=== PATIENT | female | born 1950 | race Caucasian/White ===

== ENCOUNTER → 2017-03-20 | Outpatient (CLI) | payer OTHER, MEDICAID | LOC: FIMAGING 15:57 | PROVIDERS: ATTEND Internal Medicine | DX: Z12.31 Encounter for screening mammogram for malignant neoplasm of breast (principal) | CPT/HCPCS: G0202; G0463-PO ==

== ENCOUNTER 2017-05-17 04:46 | Observation (INO) | payer OTHER, MEDICAID ==
[2017-05-17] MEDS ORDERED: NS 1,000 ML IV ONE (04:55)
--- NOTE | 2017-05-17 04:58 | EDPHY ---
H & P Stated Complaint: fall, dizzy HPI/ROS: HPI CHIEF COMPLAINT: fall, facial injury, right hand injury, possible syncope HISTORY OF PRESENT ILLNESS: Patient is a 67-year-old female she presents emergency room by EMS for fall this evening. Unclear exactly the nature of the events. The patient cannot report exactly what happened. She is unsure. She thinks she bent over and fell and then landed on the left side of her head. She states she was wearing her glasses. She decided come to the hospital initially by private vehicle left her home and drove here but ended up at the [employer] bus station thinking that was the hospital parking garage. 911 was called from there and the patient was brought to the emergency room. Upon arrival to the emergency room she can't tell me what year it is, she can't tell me that she lives in [facility], she can't tell me the president however does seem slightly confused. She does have ecchymosis to left periorbital region, additionally ecchymosis to the right hand. She denies any chest pain or shortness of breath. Denies neck pain. She is unsure exactly what happened. Denies being on any blood thinners. She does have a history of chronic pain and fibromyalgia and takes large amount of medications. Patient denies any recent illness. Past Medical History: Chronic pain, fibromyalgia, TMJ, osteopenia Past Surgical History: No recent surgery Social History: Lives locally in [place]. She denies alcohol or tobacco but does occasionally eat edible marijuana brownies. Family History: Noncontributory ROS REVIEW OF SYSTEMS: A comprehensive 10 point review of systems is otherwise negative aside from elements mentioned in the history of present illness. Exam Constitutional appears nontoxic triage nursing summary reviewed, vital signs reviewed, awake/alert. Eyes normal conjunctivae and sclera, EOMI, PERRLA. HENT head/neck: There is ecchymosis around the left periorbital region with swelling. No eye injury, no midline cervical spine pain,, moist mucus membranes , no epistaxis, neck supple/ no meningismus, no raccoon eyes. Respiratory clear to auscultation bilaterally, normal breath sounds, no respiratory distress, no wheezing. Cardiovascular rate normal, regular rhythm, no murmur, no edema, distal pulses normal. Gastrointestinal soft, non-tender, no rebound, no guarding, normal bowel sounds, no distension, no pulsatile mass. Genitourinary no CVA tenderness. Musculoskeletal right hand is swollen and ecchymotic, but neurovascular intact with good distal pulse. Good cap refill good strategy lead strength, no midline vertebral tenderness, full range of motion, no calf swelling, no tenderness of extremities, no meningismus, good pulses, neurovascularly intact. Skin pink, warm, & dry, no rash, skin atraumatic. Neurologic awake, alert and oriented x 3, AAOx3, moves all 4 extremities equally, motor intact, sensory intact, CN II-XII intact, normal cerebellar, normal vision, normal speech. Psychiatric normal mood/affect. Heme/Lymph/Immune no lymphadenopathy. Differential Diagnosis: Includes but is not limited to in a particular order syncope, intracranial bleed, subdural, epidural, facial fractures, right hand fracture, fall, medication overdose Medical Decision Making: Plan for this patient IV establishment blood draw, check basic blood work, EKG, troponin, CT scan of the head and neck, right hand x-ray chest x-ray and re-evaluate. Re-evaluation: EKG interpretation by me on record in [employer] system. Impression time of EKG 4:57 a.m., sinus rhythm rate of 75 otherwise unremarkable EKG no signs of cardiac arrhythmia or acute ischemia. CT scan of the head and neck without contrast negative for acute traumatic injury. There is facial swelling present. But no underlying fracture or bleed. ED x-ray of the chest negative for acute cardiopulmonary disease. ED x-ray of the right hand negative for acute fracture. Image interpreted myself. [id number]: I did reexamine the patient. She really can't tell me what happened. She is unsure exactly how she fell. It may be due to overmedication of her home medications. Her x-rays, CT and blood work unremarkable. She still seems somewhat confused to me and I do not feel safe discharging her home she lives independent. I do feel that she needs to be admitted the hospital for observation for confusion and weakness and fall. Most probable cause polypharmacy. Urine drug screen is ordered. Will speak with the hospitalist service for admission. 0606: Spoke with Dr. Duque, hospitalist service agrees to admit. Patient benefit from PT OT. Observation. See if her polypharmacy clears. Also waiting drug screen. I do not feel safe discharging her home she lives independently. Source: Patient, EMS - Personal History Current Tetanus Diphtheria and Acellular Pertussis (TDAP): Yes Tetanus Vaccine Date: 2008 - Medical/Surgical History Hx Asthma: No Hx Chronic Respiratory Disease: No Hx Diabetes: No Hx Cardiac Disease: No Hx Renal Disease: No Hx Cirrhosis: No Hx Alcoholism: No Hx HIV/AIDS: No Hx Splenectomy or Spleen Trauma: No Other PMH: osteoporosis, TMJ, fibromyalgia - Social History Smoking Status: Former smoker Constitutional: Initial Vital Signs Temperature (C) 36.7 C 05/17/17 04:50 Heart Rate 80 05/17/17 04:50 Respiratory Rate 16 05/17/17 04:50 Blood Pressure 140/78 H 05/17/17 04:50 O2 Sat (%) 98 05/17/17 04:50 O2 Delivery Mode Room Air O2 (L/minute) 2 Allergies/Adverse Reactions: codeine [Codeine] Allergy (Severe, Verified 05/17/17 04:50) Other-Enter Comments hydrocodone bitartrate [From Vicodin] Allergy (Mild, Verified 05/17/17 04:50) Itching Milk Containing Products Allergy (Unknown, Unverified 05/18/17 16:19) NSAIDS (Non-Steroidal Anti-Inflamma [NSAIDS (Non-Steroidal Anti-Inflammatory Drug)] Allergy (Unknown, Unverified 05/18/17 16:19) Abdominal Cramping venom-honey bee Allergy (Unknown, Unverified 05/18/17 16:19) Sulfa (Sulfonamide Antibiotics) Allergy (Verified 05/17/17 04:50) EGGPLANT Allergy (Unknown, Uncoded 05/17/17 04:50) hydrocodone bitartrate Allergy (Unknown, Uncoded 05/18/17 16:19) Itching Home Medications: Medication Instructions Recorded Fluticasone/Salmeter 250/50Mcg 2 inh IH BID 08/20/11 [Advair 250/50 (*)] Gabapentin [Neurontin 300 MG (*)] 600 mg PO HS 08/20/11 Thyroid [[place] Thyroid 60 MG (*)] 60 mg PO AD 08/20/11 celeCOXIB [Celebrex (*)] 400 mg PO DAILY06 08/20/11 cycloSPORINE 0.05% [Restasis Opht 1 each EACHEYE BID 08/20/11 Drops(*)] Ascorbic Acid [Vitamin C 500 mg 500 mg PO DAILY 10/19/15 (*)] Cholecalciferol Vit D3 [Vitamin D3 1,000 units PO DAILY 10/19/15 (*)] Multivitamins [Multivitamin (*)] 1 each PO DAILY 10/19/15 Vitamin B Complex [B Complex] 1 each PO DAILY 10/19/15 Buprenorphine [Butrans 20 mcg/hr] 1 each TD FR 10/26/15 CYCLOBENZAPRINE HCL [Flexeril] 5 mg PO HS 05/17/17 Diclofenac Potassium [Cambia] 50 mg PO DAILY PRN 05/17/17 Divalproex ER [Depakote ER 250 MG 250 mg PO HS 05/17/17 (*)] Herbals/Supplements -Info Only 1 ea PO DAILY 05/17/17 SUMAtriptan [Imitrex 50 MG (*)] 100 mg PO DAILY PRN 05/17/17 Venlafaxine Xr [Effexor Xr 75MG 150 mg PO DAILY 05/17/17 (*)] Acetaminophen [Tylenol 325mg (*)] 650 mg PO Q4HRS PRN tab 05/18/17 Melatonin [Melatonin 3 MG (*)] 3 mg PO HS PRN tab 05/18/17 Medical Decision Making - Data Points Laboratory Results: Laboratory Results 05/17/17 05:00 05/17/17 05:00 Medications Given: Discontinued Medications Ascorbic Acid (Vitamin C) 500 mg PO DAILY PHILIP Stop: 11/14/17 08:59 Last Admin: 05/18/17 08:14 Dose: 500 mg Celecoxib (Celebrex) 400 mg PO DAILY06 PHILIP Stop: 11/13/17 13:29 Last Admin: 05/18/17 05:38 Dose: 400 mg Cholecalciferol (Vitamin D) 1,000 units PO DAILY PHILIP Stop: 11/14/17 08:59 Last Admin: 05/18/17 08:13 Dose: 1,000 units Cyclobenzaprine HCl (Flexeril) 5 mg PO HS PHILIP Stop: 11/13/17 20:59 Last Admin: 05/17/17 21:09 Dose: 5 mg Cyclosporine (Restasis) 1 drop EACHEYE BID PHILIP Stop: 11/13/17 20:59 Last Admin: 05/18/17 10:32 Dose: Not Given Divalproex Sodium (Depakote Er) 250 mg PO HS PHILIP Stop: 11/13/17 20:59 Last Admin: 05/17/17 21:09 Dose: 250 mg Enoxaparin Sodium (Lovenox) 40 mg SC DAILY PHILIP Stop: 11/13/17 08:59 Last Admin: 05/18/17 08:14 Dose: 40 mg Gabapentin (Neurontin) 600 mg PO HS PHILIP Stop: 11/13/17 20:59 Last Admin: 05/17/17 21:10 Dose: 600 mg Sodium Chloride (Ns) 1,000 mls @ 0 mls/hr IV ONCE ONE PRN Reason: Wide Open Stop: 05/17/17 04:56 Last Admin: 05/17/17 05:00 Dose: 1,000 mls Melatonin (Melatonin) 3 mg PO HS PRN PRN Reason: Sleep/Insomnia Stop: 11/13/17 20:22 Last Admin: 05/17/17 21:09 Dose: 3 mg Miscellaneous Medication (Buprenorphine [Butrans 20 Mcg/Hr]) 1 each TD FR PHILIP Stop: 11/14/17 08:59 Last Admin: 05/18/17 10:31 Dose: Not Given Multivitamins (Tab-A-Cesar) 1 each PO DAILY PHILIP Stop: 11/14/17 08:59 Last Admin: 05/18/17 08:14 Dose: 1 each Fluticasone/Salmeterol (Advair) 2 puffs IH BID PHILIP Stop: 11/13/17 20:59 Last Admin: 05/18/17 08:28 Dose: 2 puffs Thyroid ([place] Thyroid) 60 mg PO Q3D@0900 PHILIP Stop: 11/13/17 11:59 Last Admin: 05/17/17 13:16 Dose: 60 mg Venlafaxine HCl (Effexor Xr) 150 mg PO DAILY PHILIP Stop: 11/13/17 11:44 Last Admin: 05/17/17 13:55 Dose: Not Given Venlafaxine HCl (Effexor Xr) 150 mg PO DAILY PHILIP Stop: 11/13/17 13:29 Last Admin: 05/18/17 08:13 Dose: 150 mg Vitamin B Complex (Vitamin B Complex) 1 ea PO DAILY PHILIP Stop: 11/14/17 08:59 Last Admin: 05/18/17 08:14 Dose: 1 ea Departure - Departure Disposition: [facility] Inpatient Acute Clinical Impression: Confusion Fall Qualifiers: Encounter type: initial encounter Qualified Code(s): W19.XXXA - Unspecified fall, initial encounter Facial hematoma Qualifiers: Encounter type: initial encounter Qualified Code(s): S00.83XA - Contusion of other part of head, initial encounter Hand contusion Qualifiers: Encounter type: initial encounter Laterality: right Qualified Code(s): S60.221A - Contusion of right hand, initial encounter Condition: Fair
[2017-05-17 05:16] LABS: PLATELET COUNT 162 10^3/uL (150-400)
[2017-05-17 05:30] LABS: INR 0.91 (0.83-1.16); PROTIME(PATIENT) 12.5 SEC (12.0-15.0)
[2017-05-17] MEDS ORDERED: ONDANSETRON DISINTEGRATING 4 MG TAB PO PRN (06:05)
[2017-05-17] MEDS ORDERED: ONDANSETRON 4 MG/2 ML VIAL IVP PRN (06:05)
[2017-05-17] MEDS ORDERED: ACETAMINOPHEN 325 MG TAB PO PRN (06:05)
--- NOTE | 2017-05-17 06:22 | PDGENHP ---
History and Physical - Chief Complaint Fall - History of Present Illness 67 yo F w/ chronic pain, FM, insomnia presents after a fall. Patient states she somehow ended up on the floor today and hit the left side of her face. She tried to drive to the hospital but ended up at the [employer] bus station thinking this was the hospital. Bystanders called 911 and patient was brought to ED for evaluation. In the ED work-up was relaatively unremarkable aside from ecchymosis to L terrie-orbital region. She is being admitted for observation in the setting of subtle confusion and poor gait. History Information - Allergies/Home Medication List Allergies/Adverse Reactions: codeine [Codeine] Allergy (Severe, Verified 05/17/17 04:50) Other-Enter Comments NSAIDS (Non-Steroidal Anti-Inflamma [Nsaids] Allergy (Intermediate, Verified 05/03 04:50) Abdominal Cramping hydrocodone bitartrate [From Vicodin] Allergy (Mild, Verified 05/17/17 04:50) Itching venom-honey bee [bee venom (honey bee)] Allergy (Unknown, Verified 05/17/17 04: 50) Milk Containing Products [dairy] Allergy (Verified 05/17/17 04:50) Sulfa (Sulfonamide Antibiotics) Allergy (Verified 05/17/17 04:50) EGGPLANT Allergy (Unknown, Uncoded 05/17/17 04:50) Home Medications: Divalproex [Depakote 500 MG (RX)] 250 mg PO HS 08/20/11 [Last Taken 10/25/15 22: 00] Fluticasone/Salmeter 250/50Mcg [Advair 250/50 (RX)] 2 inh IH BID 08/20/11 [Last Taken 10/26/15 06:45] Gabapentin [Neurontin 300 MG (RX)] 900 mg PO HS 08/20/11 [Last Taken 10/25/15 22 :00] Ketamine [Ketamine 500 mg/10 ml (RX)] 100 mg NASAL HS 08/20/11 [Last Taken 10/24 22:00] Oxygen-Air Delivery Systems [OXYGEN] 1 l NASAL HS 08/20/11 [Last Taken 10/26/15 06:00] Thyroid [Norco Thyroid (RX)] 60 mg PO DAILY 08/20/11 [Last Taken 10/26/15 06:45 ] Venlafaxine Xr [Effexor Xr] 75 mg PO DAILY06 08/20/11 [Last Taken 10/26/15 06:45 ] Zolpidem Tartrate [Ambien (RX)] 10 mg PO HS 08/20/11 [Last Taken 10/25/15 22:00] celeCOXIB [Celebrex (RX)] 400 mg PO DAILY06 08/20/11 [Last Taken 10/23/15 06:00] cycloSPORINE 0.05% [Restasis (RX)] 1 each EACHEYE BID 08/20/11 [Last Taken 10/25 06:45] B Complex PO DAILY 10/19/15 [Last Taken 10/19/15 06:00] Calcium with Magnesium Tab PO DAILY 10/19/15 [Last Taken 10/19/15 06:00] Fish Oil PO DAILY 10/19/15 [Last Taken 10/19/15 06:00] Inositol PO DAILY 10/19/15 [Last Taken 10/25/15 22:00] Magnesium Gluconate PO DAILY 10/19/15 [Last Taken 10/19/15 06:00] Multivitamin PO DAILY 10/19/15 [Last Taken 10/19/15 06:00] Vitamin C PO DAILY 10/19/15 [Last Taken 10/19/15 06:00] Vitamin D3 PO DAILY 10/19/15 [Last Taken 10/19/15 06:00] Buprenorphine [Butrans 20 mcg/hr] 1 each TD FR 10/26/15 [Last Taken 10/22/15] I have personally reviewed and updated: family history, medical history - Past Medical History chronic insomnia, fibromyalgia Additional medical history: Chronic pain - Family History Positive for: cancer - Social History Smoking Status: Former smoker Review of Systems Review of Systems: ROS: 10pt was reviewed & negative except for what was stated in HPI & below Physical Exam Physical Exam: Temp Pulse Resp BP Pulse Ox 36.7 C 77 16 117/70 94 05/17/17 05:59 05/17/17 05:59 05/17/17 05:59 05/17/17 05:59 05/17/17 06:02 Constitutional: no apparent distress, not in pain Eyes: PERRL, EOMI, other (L periorbital ecchymosis) Ears, Nose, Mouth, Throat: moist mucous membranes, no oral mucosal ulcers Cardiovascular: regular rate and rhythym, systolic murmur Respiratory: no respiratory distress, clear to auscultation Gastrointestinal: normoactive bowel sounds, soft, non-tender abdomen Skin: warm, normal color Musculoskeletal: full muscle strength, no muscle tenderness Neurologic: AAOx3, CN II-XII Intact Psychiatric: not anxious, flat affect Lab Data & Imaging Review 05/17/17 05:00 05/17/17 05:00 WBC 6.84 10^3/uL (3.80-9.50) 05/17/17 05:00 RBC 4.15 10^6/uL (4.18-5.33) L 05/17/17 05:00 Hgb 12.1 g/dL (12.6-16.3) L 05/17/17 05:00 Hct 35.5 % (38.0-47.0) L 05/17/17 05:00 MCV 85.5 fL (81.5-99.8) 05/17/17 05:00 MCH 29.2 pg (27.9-34.1) 05/17/17 05:00 MCHC 34.1 g/dL (32.4-36.7) 05/17/17 05:00 RDW 13.5 % (11.5-15.2) 05/17/17 05:00 Plt Count 162 10^3/uL (150-400) 05/17/17 05:00 MPV 11.5 fL (8.7-11.7) 05/17/17 05:00 Neut % (Auto) 34.3 % (39.3-74.2) L 05/17/17 05:00 Lymph % (Auto) 51.0 % (15.0-45.0) H 05/17/17 05:00 Tripp % (Auto) 12.3 % (4.5-13.0) 05/17/17 05:00 Eos % (Auto) 1.6 % (0.6-7.6) 05/17/17 05:00 Baso % (Auto) 0.7 % (0.3-1.7) 05/17/17 05:00 Nucleat RBC Rel Count 0.0 % (0.0-0.2) 05/17/17 05:00 Absolute Neuts (auto) 2.34 10^3/uL (1.70-6.50) 05/17/17 05:00 Absolute Lymphs (auto) 3.49 10^3/uL (1.00-3.00) H 05/17/17 05:00 Absolute Monos (auto) 0.84 10^3/uL (0.30-0.80) H 05/17/17 05:00 Absolute Eos (auto) 0.11 10^3/uL (0.03-0.40) 05/17/17 05:00 Absolute Basos (auto) 0.05 10^3/uL (0.02-0.10) 05/17/17 05:00 Absolute Nucleated RBC 0.00 10^3/uL (0-0.01) 05/17/17 05:00 Immature Gran % 0.1 % (0.0-1.1) 05/17/17 05:00 Immature Gran # 0.01 10^3/uL (0.00-0.10) 05/17/17 05:00 PT 12.5 SEC (12.0-15.0) 05/17/17 05:00 INR 0.91 (0.83-1.16) 05/17/17 05:00 APTT 29.2 SEC (23.0-38.0) 05/17/17 05:00 Sodium 134 mEq/L (135-145) L 05/17/17 05:00 Potassium 4.6 mEq/L (3.5-5.2) 05/17/17 05:00 Chloride 99 mEq/L (97-110) 05/17/17 05:00 Carbon Dioxide 22 mEq/l (22-31) 05/17/17 05:00 Anion Gap 13 mEq/L (8-16) 05/17/17 05:00 BUN 11 mg/dL (7-23) 05/17/17 05:00 Creatinine 0.7 mg/dL (0.6-1.0) 05/17/17 05:00 Estimated GFR > 60 05/17/17 05:00 Glucose 83 mg/dL (70-100) 05/17/17 05:00 Calcium 8.9 mg/dL (8.5-10.4) 05/17/17 05:00 Troponin I < 0.012 ng/mL (0.000-0.034) 05/17/17 05:00 Ethyl Alcohol < 10 mg/dL (0-10) 05/17/17 05:00 Imaging Review: CT Head: No intracranial abnormality Soft tiss contusion over left orbit CT Cspine: Mild compression inferior endplate T1 with sclerosis and fracture line left inferior endplate probably not acute. Mod/sev facet hypertrophy multilevel w 2-3mm subluxations Spoke w Dr Espinoza at 528am Assessment & Plan Assessment: 67 yo F w/ chronic pain, FM, insomnia admitted after a fall with mild confusion. Plan: 1. Fall - Unclear circumstances around fall as patient lives alone and cannot recall many details. She hit the left side of her face resulting in periorbital ecchymosis but no intracranial or acute C-spine trauma noted on imaging. She attempted to drive herself to the hospital but ended up in the [facility] parking lot instead. I suspect a lot of this is related to polypharmacy noting patient is on multiple centrally acting meds. - PT/OT/CM evaluations 2. Acute encephalopathy, possibly toxic - Patient herself denies confusion but she has a hazy memory of the events leading up to her fall and drove herself to the wrong location thinking it was the hospital. She uses a buprenorphine patch as well as Ambien at night, which could easily lead to confusion and even mild dissociation. Concussive symptoms are another possibility after her fall. - Address polypharmacy as best as able - Check Utox 3. Chronic pain, FM - Takes Celebrex and has a buprenorphine patch. She uses MJ occasionally. 4. Depression - On venlafaxine Diet - Regular Code - Full Ppx - SCDs Dispo - Admit to observation status
[2017-05-17] MEDS: ENOXAPARIN 40 MG/0.4 ML SYR SC SCH (11:19)
[2017-05-17] MEDS ORDERED: DICLOFENAC POTASSIUM 50 MG PO PRN ×2 (11:34→11:44)
[2017-05-17] MEDS ORDERED: SUMAtriptan 50 MG TAB PO PRN (11:34)
[2017-05-17] MEDS ORDERED: VENLAFAXINE XR 75 MG CAP PO SCH (11:45)
[2017-05-17] MEDS ORDERED: THYROID 60 MG TAB PO SCH ×2 (11:45→12:00)
--- NOTE | 2017-05-17 12:29 | HOSPPROG ---
Hospitalist Progress Note Assessment/Plan: 67 yo F w/ chronic pain, FM, insomnia admitted after a fall with mild confusion. Plan: 1. Fall - Unclear circumstances around fall as patient lives alone and cannot recall many details. She hit the left side of her face resulting in periorbital ecchymosis but no intracranial or acute C-spine trauma noted on imaging. She attempted to drive herself to the hospital but ended up in the [facility] parking lot instead. I suspect a lot of this is related to polypharmacy noting patient is on multiple centrally acting meds. - PT/OT/CM evaluations 2. Acute encephalopathy, possibly toxic - Patient herself denies confusion but she has a hazy memory of the events leading up to her fall and drove herself to the wrong location thinking it was the hospital. She uses a buprenorphine patch as well as Ambien at night, which could easily lead to confusion and even mild dissociation. Concussive symptoms are another possibility after her fall. - Address polypharmacy as best as able - Check Utox 3. Chronic pain, FM - Takes Celebrex and has a buprenorphine patch. She uses MJ occasionally. 4. Depression - On venlafaxine Diet - Regular Code - Full Ppx - SCDs Dispo - Admit to observation status Subjective: having some face pain. no other issues. Objective: Vital Signs Temp Pulse Resp BP Pulse Ox 36.4 C 77 16 114/56 L 97 05/17/17 11:49 05/17/17 11:49 05/17/17 11:49 05/17/17 11:49 05/17/17 11:49 05/16/17 05/17/17 05/18/17 05:59 05:59 05:59 Intake Total 1000 Balance 1000 PT 12.5 SEC (12.0-15.0) 05/17/17 05:00 INR 0.91 (0.83-1.16) 05/17/17 05:00 - Physical Exam Constitutional: appears nourished, chronically ill appearing Eyes: PERRL, anicteric sclera Ears, Nose, Mouth, Throat: hearing normal, ears appear normal Cardiovascular: No JVD, No tachycardia Respiratory: no respiratory distress, reduced air movement Gastrointestinal: No tenderness, No ascites Skin: warm, other (echymosis) Musculoskeletal: no joint effusions, generalized weakness Psychiatric: not anxious, poor judgement, poor memory ICD10 Worksheet Patient Problems: Problems Problem Status Onset Fall Acute Facial hematoma Acute Hand contusion Acute Confusion Acute
[2017-05-17] MEDS: VENLAFAXINE XR 75 MG CAP PO SCH (13:53)
[2017-05-17] MEDS ORDERED: MELATONIN 3 MG TAB PO PRN (20:23)
[2017-05-17] MEDS: FLUTICASONE/SALMETER 250/50MCG DISKUS IH SCH (20:45)
[2017-05-17] MEDS ORDERED: NON-FORMULARY NEW DRUG (Cyclobenzaprine Hcl [Flexeril] 5 MG) PO SCH (21:00)
[2017-05-17] MEDS ORDERED: GABAPENTIN 300 MG CAP PO SCH (21:00)
[2017-05-17] MEDS ORDERED: CYCLOBENZAPRINE 10 MG TAB PO SCH (21:00)
[2017-05-17] MEDS ORDERED: DIVALPROEX ER 250 MG TAB PO SCH (21:00)
[2017-05-17] MEDS: cycloSPORINE 0.05% 30 DROPERETTE/BOX EACHEYE SCH (21:20)
[2017-05-18 08:03] VITALS: RESP 16
[2017-05-18] MEDS: VENLAFAXINE XR 75 MG CAP PO SCH (08:13)
[2017-05-18] MEDS: ENOXAPARIN 40 MG/0.4 ML SYR SC SCH (08:14)
[2017-05-18] MEDS: FLUTICASONE/SALMETER 250/50MCG DISKUS IH SCH (08:28)
[2017-05-18] MEDS ORDERED: VITAMIN B COMPLEX 1 EA CAP/TAB PO SCH (09:00)
[2017-05-18] MEDS ORDERED: Buprenorphine [Butrans 20 Mcg/Hr] TD SCH (09:00)
[2017-05-18] MEDS ORDERED: CHOLECALCIFEROL VIT D3 1,000 UNITS TAB PO SCH (09:00)
[2017-05-18] MEDS ORDERED: MULTIVITAMINS 1 EACH TAB PO SCH (09:00)
[2017-05-18] MEDS ORDERED: Herbals/Supplements -Info Only PO SCH (09:00)
[2017-05-18] MEDS ORDERED: ASCORBIC ACID 500 MG TAB PO SCH (09:00)
[2017-05-18] MEDS: cycloSPORINE 0.05% 30 DROPERETTE/BOX EACHEYE SCH (10:32)
--- NOTE | 2017-05-18 11:32 | ASMTCASEMG ---
Living Arrangements What is your living Answers: Alone arrangement? Who do you live with? Type Of Residence What kind of residence do Answers: Apartment you live in? Discharge Plan Comments Coordination Status Comments Notes: Patient is a 67yo single disabled female who was admitted for a fall that left her with contusions on the left side of her face and her hand badly bruised and swollen. Patient does not remember the circusmstances of the fall saying she attempted to drive herself to the hospital but wound up in the parking lot of [facility] confused. Patient reports someone at [facility] called the ambulance for her. Patient has acute encephalopathy, possibly toxic, most likely due to polypharmacy noting patient is on multiple centrally acting medications. Patient is taking a generic Ambien and states she had an episode the night before Thanksgiving where she fell and doesn't have memory of any of the events around this except she had taken her sleeping medication. OT/PT/SPL have been ordered. Will await litzy lloyd to determine d/c plan. CM will follow. Date Signed: 05/18/2017 11:31 AM Electronically Signed By:Carole Aguilar LCSW
[2017-05-18] MEDS ORDERED: NON-FORMULARY NEW DRUG (Buprenorphine [Butrans 20 Mcg/Hr] 1 EACH) TD SCH (11:34)
[2017-05-18 11:51] VITALS: BP 116/72; PULSE 76; TEMP 97.4; O2SAT 94
--- NOTE | 2017-05-18 11:52 | ASMTCMCOM ---
CM Note CM Note Notes: Spoke with patient today re: her circumstances. Patient lives in an apartment on the first floor with no stairs. She does not have a cell phone but has a house phone and a life alert that works only at her house. Patient does have a personal care provider through [facility] that comes about twice per week. Patient has a daughter in [place] which is her main family. Patient reports she does have friends here she can call upon occasionally and in fact has a friend coming tomorrow to her home to visit. Patient states she is getting a dog for companionship since her dog has been gone for 5 years now. Patient states she sees Dr. Cano for ongoing outpatient care. We got her an appointment for May 22, 2017 to discuss the Ambien generic and the effects it has had on her. Patient states Dr. Cano has discussed having a review of her medications in the past and reviewing which ones she might be able to stop. Patient remained mildly confused today still having difficulty with short term memory recall and problem solving. Alexis Rodriguez, hospitalist will recommend patient not drive her car until she has been cleared by Dr. Cano. PT has d/c'ed patient. She will get a cognitive eval before d/c'ing to home today. Date Signed: 05/18/2017 11:52 AM Electronically Signed By:Carole Aguilar LCSW
--- NOTE | 2017-05-18 14:07 | PDIAF ---
- Diagnosis Diagnosis: Fall Code Status: Full Code - Medication Management Discharge Medications: Medications to Continue on Transfer Fluticasone/Salmeter 250/50Mcg [Advair 250/50 (*)] 2 inh IH BID 08/20/11 [Last Taken 05/16/17 09:00] Gabapentin [Neurontin 300 MG (*)] 600 mg PO HS 08/20/11 [Last Taken 05/15/17] Thyroid [Kent Thyroid 60 MG (*)] 60 mg PO AD 08/20/11 [Last Taken 05/16/17] celeCOXIB [Celebrex (*)] 400 mg PO DAILY06 08/20/11 [Last Taken 05/16/17] cycloSPORINE 0.05% [Restasis Opht Drops(*)] 1 each EACHEYE BID 08/20/11 [Last Taken 05/16/17 09:00] Ascorbic Acid [Vitamin C 500 mg (*)] 500 mg PO DAILY 10/19/15 [Last Taken 06:00] Cholecalciferol Vit D3 [Vitamin D3 (*)] 1,000 units PO DAILY 10/19/15 [Last Taken 10/19/15 06:00] Multivitamins [Multivitamin (*)] 1 each PO DAILY 10/19/15 [Last Taken 05/16/17] Vitamin B Complex [B Complex] 1 each PO DAILY 10/19/15 [Last Taken 05/16/17] Buprenorphine [Butrans 20 mcg/hr] 1 each TD FR 10/26/15 [Last Taken 05/11/17] CYCLOBENZAPRINE HCL [Flexeril] 5 mg PO HS 05/17/17 [Last Taken 05/15/17] Diclofenac Potassium [Cambia] 50 mg PO DAILY PRN 05/17/17 [Last Taken Unknown] Divalproex ER [Depakote ER 250 MG (*)] 250 mg PO HS 05/17/17 [Last Taken ] Herbals/Supplements -Info Only 1 ea PO DAILY 05/17/17 [Last Taken Unknown] SUMAtriptan [Imitrex 50 MG (*)] 100 mg PO DAILY PRN 05/17/17 [Last Taken Unknown ] Venlafaxine Xr [Effexor Xr 75MG (*)] 150 mg PO DAILY 05/17/17 [Last Taken ] Acetaminophen [Tylenol 325mg (*)] 650 mg PO Q4HRS PRN tab 05/18/17 [Last Taken Unknown] Melatonin [Melatonin 3 MG (*)] 3 mg PO HS PRN tab 05/18/17 [Last Taken Unknown] Discharge Medications: Refer to the Discharge Home Medication list for PRN reason. PICC Care - Routine: N/A - Orders Services needed: Home Care, Registered Nurse, Physical Therapy, Occupational Therapy, Speech Language Pathologist Home Care Face to Face: I certify that this patient was under my care and that I had the required [id number] encounter meeting the encounter requirements on the discharge day. My findings support the fact that the patient is homebound as defined in Home Care Face to Face Continued: CMS Chapter 7 Medicare Benefits Manual 30.1.1 , The condition of the patient is such that there exists a normal inability to leave home and consequently, leaving home would require a considerable and taxing effort. Diet Recommendation: no restrictions on diet - Follow Up Care Current Providers and Referrals: Jorje Cano MD [Primary Care Provider] - Patient,NotPresent [Unknown] - As per Instructions
--- NOTE | 2017-05-18 14:21 | GDS ---
[f rep st] DISCHARGE SUMMARY DISCHARGE DIAGNOSES: 1. Fall. 2. Acute encephalopathy. 3. Chronic pain. 4. History of depression. 5. THC consumption. 6. Acute amnesia. STUDIES AND PROCEDURES: 1. CT of the head. 2. CT of the cervical spine. 3. Hand x-ray. 4. Chest x-ray. PHYSICAL EXAM: GENERAL: The patient is alert. VITAL SIGNS: Afebrile at 36.3, pulse is 76, respira tory rate 16, blood pressure is 116/72, she is saturating 94% on room air. I have seen and evaluated the patient on the day of discharge. HOSPITAL COURSE: The patient is a 67-year-old female who presented to the emergency room with acute confusion. She was evaluated and diagnosed with. 1. Fall. During this hospitalization, it was determined that the fall was likely secondary to the p adrián's Ambien ingestion as well as THC ingestion. She states that she was on the floor and lost ba saskia and fell hitting the left side of her face. This has resolved. The patient has been cleared b y physical therapy as well as occupational therapy and is felt to be at her baseline. She is ambulat ing independently with no complaints of dizziness or weakness. 2. Acute encephalopathy. This has completely resolved and is likely secondary to the patient's Ambie n and multiple other drugs that she uses. She does admit to using THC at night as well to help her s leep. I have instructed her to refrain from taking any further Ambien and to follow up with her [facility] physician. She agrees that this is a good idea. I have also instructed her to refrain from driving until she is evaluated by her primary care physician. She agrees to this as well. 3. Chronic pain. She will continue her previously prescribed home medications. 4. History of depression. Again, her home medications. She appears to be stable. DISPOSITION: The patient will be discharged home with home health care. There are no pending studie s. I have worked in depth with Case Management to assure that this patient has a safe disposition. Again, she has agreed to not consume Ambien with marijuana as well as discussing with her primary car e physician, Dr. Alex Cano, regarding her other long-term medications FOLLOWUP: Will be with her primary care physician. She has an appointment that has been provided fo r her. /[id number]/MODL
--- NOTE | 2017-05-18 14:48 | ASMTCMCOM ---
CM Note CM Note Notes: Dr. Rodriguez and the speech therapist are both concerned patient have speech/cognitive follow up. Spoke with patient who is ok with [facility]. [facility] has accepted patient and they will have a nurse out on Sunday and the speech therapist on Sunday. Patient has no further questions. She will d/c back home today. Patient was provided with a taxi voucher since she does not have her wallet with her. CM is available if new d/c needs arise. Date Signed: 05/18/2017 02:47 PM Electronically Signed By:Carole Aguilar LCSW
--- NOTE | 2017-05-18 17:32 | ASDISCHSUM ---
Discharge Information Plan Status:Home with Home Health Medically Cleared to Leave: Discharge Date:05/18/2017 02:48 PM CM D/C Disposition:Home Health Service ADT D/C Disposition:Home Health Service Projected Discharge Date:05/18/2017 02:48 PM Transportation at D/C:Cab Voucher Discharge Delay Reason: Follow-Up Date:05/18/2017 02:48 PM Discharge Slot: Final Diagnosis: Placement Information Patient Contact Information Contact Name:BRENDON Relationship:Melany Address: Work Phone: City: [facility] Phone: State/Zip Code: Email: Financial Information Financial Class: Primary Plan Desc:MEDICARE OUTPATIENT Primary Plan Number:[id number] Secondary Plan Desc:MEDICAID HEALTH [place] Secondary Plan Number:[id number] Assessment Information [facility] Initial CM Assessment Living Arrangements What is your living Answers: Alone arrangement? Who do you live with? Type Of Residence What kind of residence do Answers: Apartment you live in? Discharge Plan Comments Coordination Status Comments Notes: Patient is a 67yo single disabled female who was admitted for a fall that left her with contusions on the left side of her face and her hand badly bruised and swollen. Patient does not remember the circusmstances of the fall saying she attempted to drive herself to the hospital but wound up in the parking lot of [facility]. Patient reports someone at [facility] called the ambulance for her. Patient has acute encephalopathy, possibly toxic, most likely due to polypharmacy noting patient is on multiple centrally acting medications. Patient is taking a generic Ambien and states she had an episode the night before Thanksgiving where she fell and doesn't have memory of any of the events around this except she had taken her sleeping medication. OT/PT/SPL have been ordered. Will await litzy lloyd to determine d/c plan. CM will follow. Date Signed: 05/18/2017 11:31 AM Electronically Signed By:Carole Aguilar LCSW [facility] Progress Note CM Note CM Note Notes: Spoke with patient today re: her circumstances. Patient lives in an apartment on the first floor with no stairs. She does not have a cell phone but has a house phone and a life alert that works only at her house. Patient does have a personal care provider through [facility] that comes about twice per week. Patient has a daughter in [place] which is her main family. Patient reports she does have friends here she can call upon occasionally and in fact has a friend coming tomorrow to her home to visit. Patient states she is getting a dog for companionship since her dog has been gone for 5 years now. Patient states she sees Dr. Cano for ongoing outpatient care. We got her an appointment for May 22, 2017 to discuss the Ambien generic and the effects it has had on her. Patient states Dr. Cano has discussed having a review of her medications in the past and reviewing which ones she might be able to stop. Patient remained mildly confused today still having difficulty with short term memory recall and problem solving. Alexis Rodriguez, hospitalist will recommend patient not drive her car until she has been cleared by Dr. Cano. PT has d/c'ed patient. She will get a cognitive eval before d/c'ing to home today. Date Signed: 05/18/2017 11:52 AM Electronically Signed By:Carole Aguilar LCSW [facility] Progress Note CM Note CM Note Notes: Dr. Rodriguez and the speech therapist are both concerned patient have speech/cognitive follow up. Spoke with patient who is ok with [facility]. [facility] has accepted patient and they will have a nurse out on Sunday and the speech therapist on Sunday. Patient has no further questions. She will d/c back home today. Patient was provided with a taxi voucher since she does not have her wallet with her. CM is available if new d/c needs arise. Date Signed: 05/18/2017 02:47 PM Electronically Signed By:Carole Aguilar LCSW Case Management Discharge Plan Note Case Management Discharge Discharge Order Complete? Answers: Yes Followup Appointment 05/22/2017 12:00 AM Patient to Obtain Answers: Other Notes: [facility] Medications Transportation Arranged Answers: Taxi - Voucher Faxed Final Orders Answers: Yes Notes: [facility] Agency/Facility Transfer Answers: Yes Notes: [facility] Report Printed & Faxed to Receiving Agency Family Notified Answers: No Notes: Patient would not let u s notify her daughter. Discharge Comments Notes: Patient d/c'ing home with [facility] for nursing and speech support. made her an appointment with Dr. Cano who will follow up on her medications May 22, 2017 @ 1:00 (13:00).Transport arranged with taxi voucher as patient does not have her wallet and has no idea how to work with [employer] or [employer] apps. See previous notes for details on patient's social circumstances. Date Signed: 05/18/2017 02:54 PM Electronically Signed By:Carole Aguilar LCSW Intervention Information Intervention Type:*NEDA-Signed Date of Service:05/17/2017 09:58 AM Patient Type:Observation Staff Member:Elvia White Hours: Discipline: Severity: Comment:
[2017-05-19] MEDS ORDERED: THYROID 60 MG TAB PO SCH (09:00)
--- NOTE | 2017-05-23 09:54 | CPEKG ---
Heart Rate: 75 RR Interval: 800 P-R Interval: 196 QRSD Interval: 72 QT Interval: 388 QTC Interval: 434 P Newfield: 60 QRS Newfield: 52 T Wave Newfield: 57 EKG Severity - NORMAL ECG - EKG Impression: SINUS RHYTHM Preliminary Awaiting MD Review
== END 2017-05-18 14:48 | disposition home health service (06) ==
LOC: EDUNIT# → F3E 07:31
PROVIDERS: ADMIT Student in an Organized Health Care Education/Training Program; ATTEND Internal Medicine
DX: G93.40 Encephalopathy, unspecified (principal); S00.83XA Contusion of other part of head, initial encounter; S60.221A Contusion of right hand, initial encounter; R40.2411 Glasgow coma scale score 13-15, in the field [EMT or ambulance]; W19.XXXA Unspecified fall, initial encounter; Y92.019 Unspecified place in single-family (private) house as the place of occurrence of the external cause; F12.10 Cannabis abuse, uncomplicated; R41.3 Other amnesia; G89.29 Other chronic pain; F32.9 Major depressive disorder, single episode, unspecified; M79.7 Fibromyalgia; M81.0 Age-related osteoporosis without current pathological fracture; Z87.891 Personal history of nicotine dependence; Z88.2 Allergy status to sulfonamides
CPT/HCPCS: 70450; 71045; 72125; 73130; 92523; 97161; 97166; 97530; 97535; G0378; G8978; G8979; G8980; G8987; G8988; G9165; G9166; G9167; J1650; 80305; G0480

== ENCOUNTER 2017-10-09 05:42 | Day surgery (SDC) | payer OTHER, MEDICAID ==
[2017-10-09] MEDS ORDERED: ceFAZolin 2 GM/DEXTROSE 100 ML IV ONE (05:51)
[2017-10-09] MEDS ORDERED: LR 1,000 ML IV ONE (05:52)
[2017-10-09] MEDS ORDERED: BACITRACIN 50,000 UNITS/10 ML SYR IRR ONE (06:46)
[2017-10-09] MEDS ORDERED: BUPIVACAINE 0.25% 30 ML SDV ONE (06:46)
--- NOTE | 2017-10-09 07:11 | PDHPUP ---
History & Physical Update H&P update statement: This history and physical update is based on an assessment of the patient which was completed after admission or registration (within 24 hours), but prior to the surgery/procedure. H&P update: H&P reviewed & patient examined
[2017-10-09] MEDS ORDERED: MIDAZOLAM 2 MG/2 ML VIAL ONE (07:18)
[2017-10-09] MEDS ORDERED: fentaNYL 100 MCG/2 ML INJ ONE (07:18)
[2017-10-09] MEDS ORDERED: PROPOFOL/EMULSION 500 MG/50 ML BOTTLE IV ONE (07:18)
--- NOTE | 2017-10-09 07:21 | PDANEPAE ---
ANE Past Medical History - Cardiovascular History Hx Hypertension: No Hx Arrhythmias: No Hx Chest Pain: No Hx Coronary Artery / Peripheral Vascular Disease: No Hx CHF / Valvular Disease: No Hx Palpitations: No - Pulmonary History Hx COPD: No Hx Asthma/Reactive Airway Disease: Yes Hx Recent Upper Respiratory Infection: Yes Hx Oxygen in Use at Home: Yes Hx Sleep Apnea: Yes Sleep Apnea Screening Result - Last Documented: Positive Pulmonary History Comment: JOCELYN USES C-PAP WITH OXYGEN NOC. INSTRUCTED TO BRING DAY OF SURG. PNEUMONIA 2009. PLEURAL EFFUSION 2009. ASTHMA TRIGGERS ENVIRONMENTAL - Neurologic History Hx Cerebrovascular Accident: No Hx Seizures: Yes Hx Dementia: No Neurologic History Comment: PSEUDO SEIZURES 2004 - STRESS RELATED - Endocrine History Hx Diabetes: No Endocrine History Comment: HYPERTHYROID - Renal History Hx Renal Disorders: No - Liver History Hx Hepatic Disorders: No - Neurological & Psychiatric Hx Hx Neurological and Psychiatric Disorders: Yes Neurological / Psychiatric History Comment: BOTOX FOR MIGRAINES - Cancer History Hx Cancer: No - Congenital Disorder History Hx Congenital Disorders: No - GI History Hx Gastrointestinal Disorders: No - Other Health History Other Health History: HAS HAD 3 FALL SINCE APRIL 2015. PCP FEELS RELATED TO MEDICATIONS PATIENT TAKES FOR FIBROMYALGIA AND INSOMNIA. OSTEOPOROSIS. OSTEOARTHRITIS. TMJ. DJD FINGER JOINTS,WRISTS,TOE JOINTS AND FOOT BUNIONS - Chronic Pain History Chronic Pain: Yes (FIBROMYALGIA) - Surgical History Prior Surgeries: LT ROTATOR CUFF DISTAL CLAVICLE REMVL ARTHRITIS 2010 AT [facility]. UTERINE ABLATION. RT SHLDR 2006. TONSILLECTOMY. ENDOMETROSIS,RT S& O. RT FOOT ANT LIGAMENT WITH SCREWS 2003. LT ACL RECONST ANE Review of Systems Review of Systems: - Exercise capacity METS (RN): 3 METS ANE Patient History - Allergies Allergies/Adverse Reactions: codeine [Codeine] Allergy (Severe, Verified 05/17/17 04:50) Other-Enter Comments hydrocodone bitartrate [From Vicodin] Allergy (Mild, Verified 05/17/17 04:50) Itching Milk Containing Products Allergy (Unknown, Unverified 05/18/17 16:19) NSAIDS (Non-Steroidal Anti-Inflamma [NSAIDS (Non-Steroidal Anti-Inflammatory Drug)] Allergy (Unknown, Unverified 05/18/17 16:19) Abdominal Cramping venom-honey bee Allergy (Unknown, Unverified 05/18/17 16:19) Sulfa (Sulfonamide Antibiotics) Allergy (Verified 05/17/17 04:50) EGGPLANT Allergy (Unknown, Uncoded 05/17/17 04:50) hydrocodone bitartrate Allergy (Unknown, Uncoded 05/18/17 16:19) Itching - Home Medications Home Medications: Fluticasone/Salmeter 250/50Mcg [Advair 250/50 (*)] 2 inh IH BID 08/20/11 [Last Taken 05/16/17 09:00] Gabapentin [Neurontin 300 MG (*)] 600 mg PO HS 08/20/11 [Last Taken 10/09/17] Thyroid [Decker Thyroid 60 MG (*)] 60 mg PO AD 08/20/11 [Last Taken 10/09/17] celeCOXIB [Celebrex (*)] 400 mg PO DAILY06 08/20/11 [Last Taken 10/09/17] cycloSPORINE 0.05% [Restasis Opht Drops(*)] 1 each EACHEYE BID 08/20/11 [Last Taken 10/09/17] Ascorbic Acid [Vitamin C 500 mg (*)] 500 mg PO DAILY 10/19/15 [Last Taken ] Multivitamins [Multivitamin (*)] 1 each PO DAILY 10/19/15 [Last Taken 10/09/17] Vitamin B Complex [B Complex] 1 each PO DAILY 10/19/15 [Last Taken 10/09/17] Buprenorphine [Butrans 20 mcg/hr] 1 each TD FR 10/26/15 [Last Taken 10/04/17] CYCLOBENZAPRINE HCL [Flexeril] 5 mg PO HS 05/17/17 [Last Taken 10/09/17] Divalproex ER [Depakote ER 250 MG (*)] 250 mg PO HS 05/17/17 [Last Taken ] Herbals/Supplements -Info Only 1 ea PO DAILY 05/17/17 [Last Taken 10/09/17] SUMAtriptan [Imitrex 50 MG (*)] 100 mg PO DAILY PRN 05/17/17 [Last Taken ] Venlafaxine Xr [Effexor Xr 75MG (*)] 150 mg PO DAILY 05/17/17 [Last Taken ] Fluticasone Nasal 10/08/17 [Last Taken 10/09/17] Xopenex Hfa Inhaler (*) 10/08/17 [Last Taken Unknown] - NPO status NPO Since - Liquids (Date): 10/08/17 NPO Since - Liquids (Time): 12:15 NPO Since - Solids (Date): 10/08/17 NPO Since - Solids (Time): 20:30 - Smoking Hx Smoking Status: Former smoker ANE Labs/Vital Signs - Vital Signs Blood Pressure: 109/67 Heart Rate: 88 Respiratory Rate: 16 O2 Sat (%): 95 Height: 165.1 cm Weight: 57.606 kg ANE Physical Exam - Airway Neck exam: FROM Mallampati Score: Class 2 Mouth exam: normal dental/mouth exam - Pulmonary Pulmonary: no respiratory distress, no rales or rhonchi, clear to auscultation - Cardiovascular Cardiovascular: regular rate and rhythym, no murmur, rub, or gallop - ASA Status ASA Status: III ANE Anesthesia Plan Anesthesia Plan: MAC
[2017-10-09] MEDS ORDERED: LIDOCAINE 1% 300 MG/30 ML SDV ONE (07:25)
[2017-10-09] MEDS ORDERED: ALBUTEROL 3 ML DEYVIAL IH PRN (07:43)
[2017-10-09] MEDS ORDERED: NALOXONE HCL 0.4 MG/ML INJ IVP PRN (07:43)
[2017-10-09] MEDS ORDERED: ACETAMINOPHEN 500 MG TAB PO PRN (07:43)
[2017-10-09] MEDS ORDERED: HYDROCODONE/APAP 5/325 TAB PO PRN (07:43)
[2017-10-09] MEDS ORDERED: DEXAMETHASONE 4 MG/ML VIAL IVP PRN (07:43)
[2017-10-09] MEDS ORDERED: LR 500 ML IV PRN (07:43)
[2017-10-09] MEDS ORDERED: ONDANSETRON 4 MG/2 ML VIAL IVP PRN (07:43)
[2017-10-09] MEDS ORDERED: DIAZEPAM 5 MG/ML 1 ML SYR IVP PRN (07:43)
[2017-10-09] MEDS ORDERED: fentaNYL 100 MCG/2 ML INJ IVP PRN (07:43)
--- NOTE | 2017-10-09 09:12 | GOP ---
[f rep st] OPERATIVE REPORT DATE OF OPERATION: 10/09/2017 SURGEON: Angel Mendez MD PREOPERATIVE DIAGNOSIS: 1. 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 2. Right small finger distal interphalangeal joint. POSTOPERATIVE DIAGNOSIS: 1. 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 2. Right small finger distal interphalangeal joint osteoarthritis. PROCEDURE PERFORMED: 1. Arthrodesis, right long finger DIP joint. 2. Arthrodesis, right small finger DIP joint. FINDINGS: On the small finger I used a micro Acutrak II screw and I used a mini Acutrak II screw in the long finger. INDICATIONS: The patient is a 67-year-old woman with long-standing arthritic changes at multiple darrell nts in her fingers. She has previously undergone fusion of the index finger DIP joint. Due to the d eformity and pain she has at the long finger DIP joint and small finger DIP joint, she is brought to the operating room for definitive surgical management. DESCRIPTION OF PROCEDURE: After routinely checking the patient's identification, consent and the suc cessful induction of IV sedation, a digital block was performed using 1% lidocaine at the right long and small fingers. I then sterilely prepped and draped the patient's right hand. A surgical time-ou t was completed. I exsanguinated the long finger with a Daniels drain and allowed it to remain tight ly wrapped about the digit to retard blood inflow. A Y-shaped incision was carried sharply through t he skin on the dorsal aspect of the right long finger DIP joint. I carried this sharply through skin and then bluntly the skin and subcutaneous tissue from the extensor tendon and collateral ligaments. I made a transverse incision in the terminal extensor tendon just proximal to its inserti on leaving a small cuff of tissue distally. I sharply took down the collateral ligaments from the ra dial and ulnar side of the middle phalanx and then opened the joint in a gunstock fashion. There was extensive destruction of the bony articular surfaces with deep grooves and angular deformity. I use d an oscillating saw to create a transverse saw cut in the middle phalanx. I made a mating saw cut i n the distal phalanx articular surface, preserving as much tissue dorsally as possible to protect the nail plate and germinal matrix. Once I completed this, I passed a double-ended guidewire antegrade in the distal phalanx and then retrograde into the middle phalanx. I checked this with the FluoroSca n unit. Satisfied with the position, I drilled over the wire using a small cutdown incision at the t ip of the digit. I selected a 30 mm Acutrak II mini screw. I advanced the screw under fluoroscopic visualization until it had tightly compressed the arthrodesis point and was seated equally on either side of the DIP joint. Satisfied with this, I irrigated the wound thoroughly. I closed the extensor tendon back to the previously left stump with 4-0 Vicryl sutures. I then pulled the collateral liga ments proximally and dorsally to create a soft tissue sleeve around the arthrodesis. I used 4-0 Vicr yl for this and then closed the skin with interrupted sutures of 5-0 nylon. I also closed the cutdow n incision at the tip of the head with 5-0 nylon suture. I then performed an identical procedure at the small finger using a micro Acutrak screw. The FluoroS can unit was used to verify the satisfactory position of both joints and implants. I covered both wo unds with a sterile bulky dressing and compressive wrap. The patient was reversed from anesthetic an d extubated in the operating room. She tolerated the procedure well. There were no complications. /[id number]/MODL
--- NOTE | 2017-10-09 09:30 | POSTANESTH ---
Post Anesthetic Evaluation Cardiovascular Status: Normal, Stable, Similar to Pre-Op Cond Respiratory Status: Normal, Stable, Similar to Pre-op Cond. Level of Consciousness/Mental Status: Mildly Sleepy, Arousable Pain Control: Adequate, Prn Tx Ordered Nausea/Vomiting Control: Adequate, Prn Tx Ordered Complications Possibly Related to Anesthesia: None Noted
[2017-10-09 11:13] VITALS: BP 105/60
[2017-10-09] MEDS ORDERED: OXYCODONE/APAP 5/325 TAB PO ONE (11:13)
== END 2017-10-09 11:49 | disposition home or self-care (01) ==
LOC: FSGY 05:42
PROVIDERS: ATTEND Orthopaedic Surgery Hand Surgery
PROC: 0RGW04Z Fusion of Right Finger Phalangeal Joint with Internal Fixation Device, Open Approach (ICD-10-PCS; principal; 2017-10-09 07:15)
DX: M19.041 Primary osteoarthritis, right hand (principal); M79.7 Fibromyalgia; M47.812 Spondylosis without myelopathy or radiculopathy, cervical region; M47.816 Spondylosis without myelopathy or radiculopathy, lumbar region; E03.9 Hypothyroidism, unspecified; G47.33 Obstructive sleep apnea (adult) (pediatric); M81.0 Age-related osteoporosis without current pathological fracture; F32.9 Major depressive disorder, single episode, unspecified; J45.909 Unspecified asthma, uncomplicated; G43.909 Migraine, unspecified, not intractable, without status migrainosus
CPT/HCPCS: C1713; J0690; J2250; J2270; J2704; J3010

== ENCOUNTER 2017-10-30 05:54 | Day surgery (SDC) | payer OTHER, MEDICAID ==
[2017-10-30] MEDS ORDERED: ceFAZolin 2 GM/DEXTROSE 100 ML IV ONE (05:58)
[2017-10-30] MEDS ORDERED: LR 1,000 ML IV ONE (05:59)
[2017-10-30] MEDS ORDERED: LIDOCAINE 1% 2 ML INJ ID PRN (05:59)
[2017-10-30] MEDS ORDERED: LIDOCAINE 1% 300 MG/30 ML SDV ONE (06:39)
[2017-10-30] MEDS ORDERED: BUPIVACAINE 0.25% 30 ML SDV ONE (06:39)
[2017-10-30] MEDS ORDERED: BACITRACIN 50,000 UNITS/10 ML SYR IRR ONE (06:39)
--- NOTE | 2017-10-30 07:06 | PDANEPAE ---
ANE History of Present Illness 67 year old female for 3rd finger surgery. ANE Past Medical History - Cardiovascular History Hx Hypertension: No Hx Arrhythmias: No Hx Chest Pain: No Hx Coronary Artery / Peripheral Vascular Disease: No Hx CHF / Valvular Disease: No Hx Palpitations: No - Pulmonary History Hx COPD: No Hx Asthma/Reactive Airway Disease: Yes Hx Recent Upper Respiratory Infection: Yes Hx Oxygen in Use at Home: Yes O2 in Use at Home (L/minute): 2.L Hx Sleep Apnea: Yes Sleep Apnea Screening Result - Last Documented: Positive Pulmonary History Comment: JOCELYN USES C-PAP WITH OXYGEN NOC. INSTRUCTED TO BRING DAY OF SURG. PNEUMONIA 2009. PLEURAL EFFUSION 2009. ASTHMA TRIGGERS ENVIRONMENTAL - Neurologic History Hx Cerebrovascular Accident: No Hx Seizures: Yes Hx Dementia: No Neurologic History Comment: PSEUDO SEIZURES 2003 - STRESS RELATED - Endocrine History Hx Diabetes: No Obesity: no Endocrine History Comment: HYPERTHYROID - Renal History Hx Renal Disorders: No - Liver History Hx Hepatic Disorders: No - Neurological & Psychiatric Hx Hx Neurological and Psychiatric Disorders: Yes Neurological / Psychiatric History Comment: BOTOX FOR MIGRAINES. fibromyalgia - Cancer History Hx Cancer: No - Congenital Disorder History Hx Congenital Disorders: No - GI History Hx Gastrointestinal Disorders: No - Other Health History Other Health History: HAS HAD 3 FALL SINCE APRIL 2015. PCP FEELS RELATED TO MEDICATIONS PATIENT TAKES FOR FIBROMYALGIA AND INSOMNIA. OSTEOPOROSIS. OSTEOARTHRITIS. TMJ. DJD FINGER JOINTS,WRISTS,TOE JOINTS AND FOOT BUNIONS - Chronic Pain History Chronic Pain: Yes (FIBROMYALGIA neck and back,lowerback) - Surgical History Prior Surgeries: LT ROTATOR CUFF DISTAL CLAVICLE REMVL ARTHRITIS 2010 AT [facility]. UTERINE ABLATION. RT SHLDR 2006. TONSILLECTOMY. ENDOMETROSIS,RT S& O. RT FOOT ANT LIGAMENT WITH SCREWS 2003. LT ACL RECONST. finger sx 10/01 ANE Review of Systems Review of Systems: - Exercise capacity Exercise capacity: <4 METS METS (RN): 3 METS ANE Patient History - Allergies Allergies/Adverse Reactions: codeine [Codeine] Allergy (Severe, Verified 10/29/17 17:09) Other-Enter Comments hydrocodone bitartrate [From Vicodin] Allergy (Mild, Verified 10/29/17 17:09) Itching Milk Containing Products Allergy (Unknown, Verified 10/29/17 17:09) NSAIDS (Non-Steroidal Anti-Inflamma [NSAIDS (Non-Steroidal Anti-Inflammatory Drug)] Allergy (Unknown, Verified 10/29/17 17:09) Abdominal Cramping venom-honey bee Allergy (Unknown, Verified 10/29/17 17:09) Sulfa (Sulfonamide Antibiotics) Allergy (Verified 10/29/17 17:09) EGGPLANT Allergy (Unknown, Uncoded 10/29/17 17:09) hydrocodone bitartrate Allergy (Unknown, Uncoded 10/29/17 17:09) Itching - Home Medications Home Medications: RX: Fluticasone/Salmeter 250/50Mcg [Advair 250/50 (*)] 08/20/11 [Last Taken 09:00] RX: Gabapentin [Neurontin 300 MG (*)] 08/20/11 [Last Taken 10/29/17 23:45] RX: Thyroid [Eudora Thyroid 60 MG (*)] 08/20/11 [Last Taken 10/29/17 12:00] RX: celeCOXIB [Celebrex (*)] 08/20/11 [Last Taken 10/28/17 12:00] RX: cycloSPORINE 0.05% [Restasis Opht Drops(*)] 08/20/11 [Last Taken 10/09/17] RX: Ascorbic Acid [Vitamin C 500 mg (*)] 10/19/15 [Last Taken 10/29/17 22:00] RX: Multivitamins [Multivitamin (*)] 10/19/15 [Last Taken 10/29/17 12:00] RX: Vitamin B Complex [B Complex] 10/19/15 [Last Taken 10/26/17] RX: Buprenorphine [Butrans 20 mcg/hr] 10/26/15 [Last Taken 10/29/17 02:00] RX: CYCLOBENZAPRINE HCL [Flexeril] 05/17/17 [Last Taken 10/29/17 23:45] RX: Divalproex ER [Depakote ER 250 MG (*)] 05/17/17 [Last Taken 10/29/17 23:45] RX: Herbals/Supplements -Info Only 05/17/17 [Last Taken 10/29/17 12:00] RX: SUMAtriptan [Imitrex 50 MG (*)] 05/17/17 [Last Taken 10/09/17] RX: Venlafaxine Xr [Effexor Xr 75MG (*)] 05/17/17 [Last Taken 10/29/17 12:00] Fluticasone Nasal 10/08/17 [Last Taken 10/30/17 05:00] Xopenex Hfa Inhaler (*) 10/08/17 [Last Taken Unknown] RX: Melatonin [Melatonin 3 MG (*)] 10/29/17 [Last Taken 10/29/17 23:45] - NPO status NPO Status: no food or drink >8 hours NPO Since - Liquids (Date): 10/29/17 NPO Since - Liquids (Time): 00:00 NPO Since - Solids (Date): 10/29/17 NPO Since - Solids (Time): 23:58 - Anes Hx Anes Hx: no prior problems - Smoking Hx Smoking Status: Former smoker - Family Anes Hx Family Hx Anesthesia Complications: none ANE Labs/Vital Signs - Vital Signs Vital Signs: reviewed preoperatively; see RN documention for details Blood Pressure: 120/66 Heart Rate: 93 Respiratory Rate: 18 O2 Sat (%): 98 Height: 165.1 cm Weight: 57.606 kg ANE Physical Exam - Airway Neck exam: FROM Mallampati Score: Class 2 Mouth exam: normal dental/mouth exam - Pulmonary Pulmonary: no respiratory distress - Cardiovascular Cardiovascular: regular rate and rhythym - ASA Status ASA Status: II ANE Anesthesia Plan Anesthesia Plan: MAC Total IV Anesthesia: Yes
[2017-10-30] MEDS ORDERED: PROPOFOL/EMULSION 500 MG/50 ML BOTTLE IV ONE (07:13)
[2017-10-30] MEDS ORDERED: fentaNYL 100 MCG/2 ML INJ IVP PRN (07:37)
[2017-10-30] MEDS ORDERED: PHENYLEPHRINE HCL 100 MCG/ML SYR IVP PRN (07:37)
[2017-10-30] MEDS ORDERED: NALOXONE HCL 0.4 MG/ML INJ IVP PRN (07:37)
[2017-10-30] MEDS ORDERED: ONDANSETRON 4 MG/2 ML VIAL IVP PRN (07:37)
[2017-10-30] MEDS ORDERED: LR 500 ML IV PRN (07:37)
--- NOTE | 2017-10-30 08:00 | POSTOPPROG ---
Post Op Note Date of Operation: 10/30/17 Surgeon: Angel Mendez Traditional Chinese Herbalist: None Anesthesia: IV Sedation Pre-op Diagnosis: Mal-allignment of DIP fusion R III Post-op Diagnosis: Same Procedure: Revision arthrodesis R III DIPJ Findings: Rotated III P3 such that nail plate matched with II and IV Inf/Abcess present in the surg proc area at time of surgery?: No EBL: Minimal
--- NOTE | 2017-10-30 08:26 | GOP ---
[f rep st] OPERATIVE REPORT DATE OF OPERATION: 10/30/2017 SURGEON: Angel Mendez MD PREOPERATIVE DIAGNOSIS: Malalignment, right long finger distal interphalangeal joint fusion. POSTOPERATIVE DIAGNOSIS: Malalignment, right long finger distal interphalangeal joint fusion. PROCEDURE PERFORMED: Revision arthrodesis, right long finger distal interphalangeal joint. FINDINGS: I was able to revise the DIP joint fusion to a neutral position, such that her nail plates matched rotation both with the fingers flexed and with the fingers extended. INDICATIONS: The patient is a 67-year-old disabled woman who underwent DIP joint fusion for end-stag e osteoarthritis approximately 3 weeks ago. At her postop visit, it was evident that the rotation of her DIP fusion was such that the long fingertip was in more supination than the adjacent fingers and it gave asymmetry to the appearance of her nail plates. She is brought to the operating room for re vision. DESCRIPTION OF PROCEDURE: After routinely checking the patient's identification and consent, and the successful induction of IV sedation, a digital block was performed using 0.25% Marcaine without epin ephrine to the right long finger. The right arm and hand were now prepped and draped in the usual st andard fashion. A surgical time-out was completed. I used the Mini Acutrak screw guidewire and pass ed this percutaneously through the tip of the finger and into the barrel of the screw. I then loosen ed the screw 4 full revolutions. I then rotated the distal phalanx back into position, such that the nail plates were parallel with the finger fully extended. Of note, the nail plate was symmetric wit h the adjacent fingers with the finger fully flexed preoperatively, but with the digit extended, the nail plate was not parallel to the adjacent nail plates. Once I had rotated this into slight pronati on with the digits straight, the nail plate was parallel to the adjacent index finger and ring finger nail plates. As indicated above, with the PIP joints maximally flexed, there was asymmetry of rotat ion of the nail plates. This is not something that is surgically correctable and is likely due to as ymmetry of the condyles at the PIP joint. As such, I left this in the position it was, and tightened the screw 4-1/2 full revolutions. All instruments were removed including the guidance K-wire. The small FluoroScan unit was used during the case to verify hardware position. Satisfied with this, Alison arreaga losed the small cutdown incision with a Steri-Strip, followed by a sterile bulky dressing. She was t ransferred to the recovery area in excellent condition. She tolerated the procedure well. There wer e no complications. /[id number]/MODL
[2017-10-30 08:57] VITALS: BP 114/67
--- NOTE | 2017-10-30 10:36 | POSTANESTH ---
Post Anesthetic Evaluation Cardiovascular Status: Normal, Stable, Similar to Pre-Op Cond Respiratory Status: Normal, Stable, Similar to Pre-op Cond. Level of Consciousness/Mental Status: Can Participate in Eval, Alert and Oriented Pain Control: Adequate, Prn Tx Ordered Nausea/Vomiting Control: Adequate, Prn Tx Ordered Complications Possibly Related to Anesthesia: None Noted
== END 2017-10-30 09:45 | disposition home or self-care (01) ==
LOC: FSGY 05:54
PROVIDERS: ATTEND Orthopaedic Surgery Hand Surgery
PROC: 0RSW3ZZ Reposition Right Finger Phalangeal Joint, Percutaneous Approach (ICD-10-PCS; principal; 2017-10-30 07:15)
DX: M25.841 Other specified joint disorders, right hand (principal); M19.041 Primary osteoarthritis, right hand; M79.7 Fibromyalgia; M81.0 Age-related osteoporosis without current pathological fracture; G47.33 Obstructive sleep apnea (adult) (pediatric); E03.9 Hypothyroidism, unspecified; F32.9 Major depressive disorder, single episode, unspecified; J45.909 Unspecified asthma, uncomplicated; G43.909 Migraine, unspecified, not intractable, without status migrainosus; M26.609 Unspecified temporomandibular joint disorder, unspecified side; Z87.891 Personal history of nicotine dependence; Z88.2 Allergy status to sulfonamides
CPT/HCPCS: C1713; J0690; J2704

== ENCOUNTER → 2018-01-15 | Outpatient (CLI) | payer OTHER, MEDICAID | LOC: FIMAGING 13:13 | PROVIDERS: ATTEND Internal Medicine | DX: Z13.820 Encounter for screening for osteoporosis (principal); M81.0 Age-related osteoporosis without current pathological fracture; Z78.0 Asymptomatic menopausal state; Z87.81 Personal history of (healed) traumatic fracture ==

== ENCOUNTER → 2018-05-07 | Outpatient (CLI) | payer OTHER, MEDICAID | LOC: FIMAGING 15:17 | PROVIDERS: ATTEND Internal Medicine | DX: Z12.31 Encounter for screening mammogram for malignant neoplasm of breast (principal) ==

== ENCOUNTER → 2018-07-12 | Outpatient (CLI) | payer OTHER, MEDICAID | LOC: FIMAGING 12:55 | PROVIDERS: ATTEND Orthopaedic Surgery | DX: M75.111 Incomplete rotator cuff tear or rupture of right shoulder, not specified as traumatic (principal); M75.51 Bursitis of right shoulder; M75.21 Bicipital tendinitis, right shoulder; M75.81 Other shoulder lesions, right shoulder; Z98.890 Other specified postprocedural states ==

== ENCOUNTER 2018-08-23 09:34 | Day surgery (SDC) | payer OTHER, MEDICAID ==
--- NOTE | 2018-08-22 19:50 | GHP ---
[f rep st] PREOP HISTORY AND PHYSICAL DATE OF SURGERY: 08/23/2018 CHIEF COMPLAINT: Left forefoot. HISTORY OF PRESENT ILLNESS: The patient is a 68-year-old with history of progressive left medial for efoot pain. She is having pain with activity and limitations in her activity secondary to her sympto ms. PAST MEDICAL HISTORY: Positive for hypothyroid, asthma, increased cholesterol, migraines, and sleep apnea. SOCIAL HISTORY: She is a previous smoker. MEDICINES: Include Advair Diskus, calcium, Celebrex, cyclobenzaprine, divalproex, Shasta-C, fluticaso ne, gabapentin, levothyroxine, Restasis eyedrops, sumatriptan, venlafaxine, Xopenex inhaler. ALLERGIES: Codeine, succinylsulfathiazole, and Vicodin. PHYSICAL EXAMINATION: GENERAL APPEARANCE: She is overall appearing good health, in no acute distres s. HEENT: Head is normocephalic. Pupils are equal, round, and reactive to light. Extraocular eye movements intact. NECK: Supple. No JVD or lymphadenopathy. CHEST: Clear to auscultation. HEART: Regular rate and rhythm. ABDOMEN: Soft, nontender, nondistended. No organomegaly. GENITAL/RECTA L/BREASTS: Deferred. EXTREMITIES: Reveal a left hallux valgus deformity with gastroc contracture a nd 2nd hammertoe. IMPRESSION: 1. Left hypermobile hallux valgus/symptomatic bunion. 2. Left 2nd hammertoe deformity. 3. Left gastrocnemius contracture. PLAN: The patient is scheduled to undergo a left modified Lapidus procedure, 2nd hammertoe correctio n and gastroc recession. /[id number]/MODL
[2018-08-23] MEDS ORDERED: LR 1,000 ML IV ONE (09:44)
[2018-08-23] MEDS ORDERED: ROPIVACAINE HCL 150 MG/30 ML INJ ONE (10:05)
[2018-08-23] MEDS ORDERED: ONDANSETRON 4 MG/2 ML VIAL ONE (10:07)
[2018-08-23] MEDS ORDERED: LIDOCAINE 2% 100 MG/5 ML SYR ONE (10:07)
[2018-08-23] MEDS ORDERED: DEXAMETHASONE 4 MG/ML VIAL ONE (10:07)
[2018-08-23] MEDS ORDERED: fentaNYL 100 MCG/2 ML INJ ONE (10:07)
[2018-08-23] MEDS ORDERED: PROPOFOL 200 MG/20 ML VIAL ONE (10:08)
[2018-08-23] MEDS ORDERED: MIDAZOLAM 2 MG/2 ML VIAL ONE (10:08)
[2018-08-23] MEDS ORDERED: BUPIVACAINE 0.5% 30 ML SDV ONE (10:11)
--- NOTE | 2018-08-23 10:12 | PDANEPAE ---
ANE History of Present Illness Robinson montejo ANE Past Medical History - Cardiovascular History Hx Hypertension: No Hx Arrhythmias: No Hx Chest Pain: No Hx Coronary Artery / Peripheral Vascular Disease: No Hx CHF / Valvular Disease: No Hx Palpitations: No - Pulmonary History Hx COPD: No Hx Asthma/Reactive Airway Disease: Yes Hx Recent Upper Respiratory Infection: Yes Hx Oxygen in Use at Home: Yes Hx Sleep Apnea: Yes Sleep Apnea Screening Result - Last Documented: Positive Pulmonary History Comment: JOCELYN PREV USE OF C-PAP OR OXYGEN CURRENTLY HAS HOB ELEVATED FOR SLEEP. PNEUMONIA 2009. PLEURAL EFFUSION 2009. ASTHMA TRIGGERS ENVIRONMENTAL - Neurologic History Hx Cerebrovascular Accident: No Hx Seizures: Yes Hx Dementia: No Neurologic History Comment: PSEUDO SEIZURES 2004 - STRESS RELATED - Endocrine History Hx Diabetes: No Endocrine History Comment: HYPERTHYROID - Renal History Hx Renal Disorders: No - Liver History Hx Hepatic Disorders: No - Neurological & Psychiatric Hx Hx Neurological and Psychiatric Disorders: Yes Neurological / Psychiatric History Comment: BOTOX FOR MIGRAINES. fibromyalgia - Cancer History Hx Cancer: No - Congenital Disorder History Hx Congenital Disorders: No - GI History Hx Gastrointestinal Disorders: No - Other Health History Other Health History: OSTEOPOROSIS. FIBROMYALGIA. DECREASED MUSCLE STRENGTH IN ARMS. OSTEOARTHRITIS. TMJ. DJD FINGER JOINTS,WRISTS,TOE JOINTS AND FOOT BUNIONS - Chronic Pain History Chronic Pain: Yes (FIBROMYALGIA neck and back,lowerback) - Surgical History Prior Surgeries: RT MIDDLE FINGER REVISION DIP JOINT 10/2017. LT ROTATOR CUFF DISTAL CLAVICLE REMVL ARTHRITIS 2010 AT [facility]. UTERINE ABLATION. RT SHLDR 2006. TONSILLECTOMY. ENDOMETROSIS,RT S&O. RT FOOT ANT LIGAMENT WITH SCREWS 2003. LT ACL RECONST. finger sx 10/01 ANE Review of Systems Review of systems is: negative Review of Systems: - Exercise capacity Exercise capacity: >=4 METS METS (RN): 2 METS ANE Patient History - Allergies Allergies/Adverse Reactions: codeine [Codeine] Allergy (Severe, Verified 10/29/17 17:09) Other-Enter Comments hydrocodone bitartrate [From Vicodin] Allergy (Mild, Verified 10/29/17 17:09) Itching Milk Containing Products Allergy (Unknown, Verified 10/29/17 17:09) NSAIDS (Non-Steroidal Anti-Inflamma [NSAIDS (Non-Steroidal Anti-Inflammatory Drug)] Allergy (Unknown, Verified 10/29/17 17:09) Abdominal Cramping venom-honey bee Allergy (Unknown, Verified 10/29/17 17:09) Sulfa (Sulfonamide Antibiotics) Allergy (Verified 10/29/17 17:09) EGGPLANT Allergy (Unknown, Uncoded 10/29/17 17:09) hydrocodone bitartrate Allergy (Unknown, Uncoded 10/29/17 17:09) Itching - Home Medications Home medications: home medication list seen and reviewed Home Medications: Fluticasone/Salmeter 250/50Mcg [Advair 250/50 (*)] BID 08/20/11 [Last Taken 02/01] Gabapentin [Neurontin 300 MG (*)] HS 08/20/11 [Last Taken 08/22/18] celeCOXIB [Celebrex (*)] DAILY 08/20/11 [Last Taken 08/23/18] cycloSPORINE 0.05% [Restasis Opht Drops(*)] BID 08/20/11 [Last Taken 10/09/17] Ascorbic Acid [Vitamin C 500 mg (*)] DAILY 10/19/15 [Last Taken 08/21/18] Multivitamins [Multivitamin (*)] DAILY 10/19/15 [Last Taken 10/29/17 12:00] Vitamin B Complex [B Complex] DAILY 10/19/15 [Last Taken 08/21/18] Buprenorphine [Butrans 20 mcg/hr] CONT 10/26/15 [Last Taken 10/29/17 02:00] CYCLOBENZAPRINE HCL [Flexeril] PO PRN 05/17/17 [Last Taken 08/22/18] Divalproex ER [Depakote ER 250 MG (*)] HS 05/17/17 [Last Taken 08/22/18] Herbals/Supplements -Info Only DAILY 05/17/17 [Last Taken 10/29/17 12:00] SUMAtriptan [Imitrex 50 MG (*)] PO PRN 05/17/17 [Last Taken 10/09/17] Venlafaxine Xr [Effexor Xr 75MG (*)] DAILY 05/17/17 [Last Taken 08/23/18] Fluticasone Nasal NASAL PRN 10/08/17 [Last Taken 08/23/18] Xopenex Hfa Inhaler (*) IH PRN 10/08/17 [Last Taken Unknown] Melatonin [Melatonin 3 MG (*)] HS 10/29/17 [Last Taken 10/29/17 23:45] Levothyroxine DAILY 08/22/18 [Last Taken 08/23/18] - NPO status NPO Since - Liquids (Date): 08/23/18 NPO Since - Liquids (Time): 07:30 NPO Since - Solids (Date): 08/22/18 NPO Since - Solids (Time): 23:30 - Anes Hx Anes Hx: no prior problems - Smoking Hx Smoking Status: Former smoker - Family Anes Hx Family Anes Hx: none Family Hx Anesthesia Complications: none ANE Labs/Vital Signs - Vital Signs Vital Signs: reviewed preoperatively; see RN documention for details Blood Pressure: 104/84 Heart Rate: 85 Respiratory Rate: 15 O2 Sat (%): 97 Height: 165.1 cm Weight: 56.699 kg ANE Physical Exam - Airway Neck exam: FROM Mallampati Score: Class 3 Mouth exam: normal dental/mouth exam - Pulmonary Pulmonary: no respiratory distress - Cardiovascular Cardiovascular: regular rate and rhythym - ASA Status ASA Status: III ANE Anesthesia Plan Anesthesia Plan: GA w LMA Regional Anesthesia: popliteal SNB (POPC)
--- NOTE | 2018-08-23 10:56 | POSTOPPROG ---
Post Op Note Date of Operation: 08/23/18 Surgeon: Anthony Bishop Anesthesia: GET(General Endotracheal), LMA Pre-op Diagnosis: L HV/Bunion, gastroc ctx, 2nd hammertoe Post-op Diagnosis: same Procedure: L Lapidus, Gastroc recession, 2nd hammertoe correction Inf/Abcess present in the surg proc area at time of surgery?: No EBL: Minimal
[2018-08-23] MEDS ORDERED: MEPERIDINE 25 MG/0.5 ML AMP IVP PRN (12:19)
[2018-08-23] MEDS ORDERED: ONDANSETRON 4 MG/2 ML VIAL IVP PRN (12:19)
[2018-08-23] MEDS ORDERED: NALOXONE HCL 0.4 MG/ML INJ IVP PRN (12:19)
[2018-08-23] MEDS ORDERED: HYDROmorphONE/DILAUDID 1 MG/ML INJ IVP PRN (12:19)
[2018-08-23] MEDS ORDERED: PROMETHAZINE HCL 25 MG/ML INJ IVP PRN (12:19)
[2018-08-23] MEDS ORDERED: fentaNYL 100 MCG/2 ML INJ IVP PRN (12:19)
[2018-08-23] MEDS ORDERED: oxyCODONE IR 5 MG TAB PO PRN (12:19)
[2018-08-23] MEDS ORDERED: DEXAMETHASONE 4 MG/ML VIAL IVP PRN (12:19)
--- NOTE | 2018-08-23 12:19 | POSTANESTH ---
Post Anesthetic Evaluation Cardiovascular Status: Similar to Pre-Op Cond Respiratory Status: Similar to Pre-op Cond. Level of Consciousness/Mental Status: Can Participate in Eval, Mildly Sleepy, Arousable Pain Control: Adequate, Prn Tx Ordered Nausea/Vomiting Control: Adequate, Prn Tx Ordered Complications Possibly Related to Anesthesia: None Noted
[2018-08-23 14:19] VITALS: BP 112/69
--- NOTE | 2018-08-24 18:46 | GOP ---
[f rep st] OPERATIVE REPORT DATE OF OPERATION: 08/23/2018 SURGEON: Anthony Bishop MD ANESTHESIA: General plus popliteal and saphenous nerve blocks performed by the anesthesiologist at m y request for postoperative pain management. PREOPERATIVE DIAGNOSIS: 1. Left hypermobile hallux valgus/symptomatic bunion. 2. Left midfoot instability. 3. Left gastrocnemius contracture. 4. Left second hammertoe. POSTOPERATIVE DIAGNOSIS: 1. Left hypermobile hallux valgus/symptomatic bunion. 2. Left midfoot instability. 3. Left gastrocnemius contracture. 4. Left second hammertoe. PROCEDURE PERFORMED: 1. Left modified Lapidus bunionectomy (first tarsometatarsal arthrodesis, distal soft tissue reconst ruction, bunionectomy). 2. Left first inner cuneiform arthrodesis. 3. Left gastrocnemius recession. 4. Left second toe hammertoe correction (extensor tenotomy, second metatarsophalangeal capsulotomy, interphalangeal arthrodesis). FINDINGS: ESTIMATED BLOOD LOSS: Minimal. INDICATIONS: The patient is a 68-year-old with a history of progressive medial forefoot pain and def ormity. Clinically and radiographically, she was noted to have hypermobile hallux valgus and symptom atic bunion. Based on her persistence of symptoms refractory to nonoperative treatment, she was inte rested in pursuing operative treatment. From an operative standpoint, modified Lapidus procedure, 2n d hammertoe correction, gastroc recession was recommended. The patient acknowledged she understood t he potential risks including, but not limited to, bleeding, infection, neurovascular damage including loss of limb or limb function, malunion, nonunion, need for hardware removal, pain or functional redd itations despite operative treatment, and anesthetic risks. She acknowledged she understood the pote ntial risks, planned procedure, and postoperative plan well, and had all questions answered prior to surgery. She gave her consent for the operative procedure. DESCRIPTION OF PROCEDURE: DRAINS: None. COMPLICATIONS: None. TECHNIQUE: Patient was brought in the operating after IV antibiotics were administered. Popliteal a nd saphenous nerve blocks were performed by Anesthesiologist at my request for postoperative pain man agement. General anesthetic was administered. A tourniquet was placed on the left thigh, bump under neath the left hip and shoulder, and left lower extremity was prepped and draped in standard sterile fashion. After marking the incision and Adilson wrap exsanguination, tourniquet was inflated to 250. At tention was initially directed toward the gastroc recession. A longitudinal incision was made along the medial aspect of the lower leg at the level of the mid substance of the gastroc. Skin and subcut aneous tissue were sharply incised. Sharp dissection was carried through the superficial posterior c ompartment fascia in line with the skin incision. Interval between the gastrocnemius-soleus, and rosa eus was bluntly dissected. Utilizing a speculum for retraction, the anterior tendon of the gastroc w as transversely incised. Favorable dorsiflexion was achieved. The subcutaneous tissue was closed wi th 3-0 Vicryl suture in an interrupted fashion. Skin was closed with 4-0 nylon interrupted sutures. A longitudinal incision was made along the dorsal medial aspect of the midfoot. Skin and subcutaneou s tissue were sharply incised. Sharp dissection was carried just lateral to the EHL tendon, exposing the 1st TMT, inner cuneiform, and intermetatarsal base joints. Utilizing a chisel and rongeur, all articular cartilage was removed. In preparation for arthrodesis, the subchondral bone was drilled mu ltiple times with a 2.0 mm drill bit and further roughened with a chisel. The 4 mm bur was used to c reate a trough on the dorsal aspect of the 1st metatarsal and medial cuneiform. This was placed for later screw placement. A longitudinal incision was made along the medial aspect of the first MTP joint. Skin and subcutaneo us tissue were sharply incised. Dissection was carried through the capsule, taking care to avoid dam age to the digital nerve. The capsule was reflected dorsally and plantarly. Saw was then utilized t o remove the bony prominence of the medial aspect of the 1st metatarsal head. A small incision was m mckenzie in the 1st interdigital space. Dissection was carried to the lateral aspect of the 1st MTP joint . The capsule was transversely opened. Tenotomy scissors were then used to release the sesamoid met atarsal ligaments both proximally and distally. The 1st metatarsal was then optimally reduced and se cured with 3.5 mm cortical screws placed in lag fashion from the dorsal aspect of the 1st metatarsal, the plantar aspect of the medial cuneiform, dorsal aspect of the cuneiform and plantar as pect 1st metatarsal, the medial aspect of the medial cuneiform into the middle cuneiform. Patient's bone was noted to be very soft. It is felt that supplemental plate fixation would be prudent to bett er stabilize the fusion. A 6-hole quarter tubular plate was contoured at the appropriate angle of 1s t TMT joint. Proximal and distal to the arthrodesis site, two 2.7 mm bicortical screws were placed i n a dorsal to plantar direction through the plate. Fluoroscopic views confirmed favorable hardware a nd arthrodesis positions. A V-shaped wedge of capsule was then removed from the plantar capsule. Ca psule was then tightened with 0 PDS suture. Through the interdigital space incision, dissection was carried laterally exposing the 2nd MTP joint. The extensor tendon and joint capsule were released. A small horizontal incision was made at the I P joint. Using a small saw, the distal aspect of the proximal phalanx and proximal aspect of the mid dle phalanx was removed. A guide pin from the [employer] 2.0 mm headless screws was placed from the ti p of the toe across the distal, middle, and proximal phalanxes. After confirming proper pin position , appropriate length 2.0 mm headless screw was placed over the guide pin, gaining favorable purchase. Attention was directed toward closure. The deep tissue was closed with 2-0 Vicryl suture in an inter rupted fashion. Subcutaneous tissue closed with 3-0 Vicryl suture in interrupted fashion. The skin closed with 4-0 nylon sutures. The wounds were dressed with sterile Adaptic, 4 x 4, and Webril, and the leg was placed in a below-knee splint. The patient tolerated the procedure well and was taken to the recovery room, extubated in stable condition postoperatively. All sponge, needle, and instrumen t counts were reported as being correct. PLAN: Patient will be discharged home nonweightbearing in her operative extremity. /[id number]/MODL
== END 2018-08-23 14:20 | disposition home or self-care (01) ==
LOC: FSGY 09:34
PROVIDERS: ATTEND Orthopaedic Surgery Foot and Ankle Surgery
PROC: 0LSP0ZZ Reposition Left Lower Leg Tendon, Open Approach (ICD-10-PCS; principal; 2018-08-23 10:45)
PROC: 0SGQ04Z Fusion of Left Toe Phalangeal Joint with Internal Fixation Device, Open Approach (ICD-10-PCS; principal; 2018-08-23 10:45)
PROC: 0SGL04Z Fusion of Left Tarsometatarsal Joint with Internal Fixation Device, Open Approach (ICD-10-PCS; principal; 2018-08-23 10:45)
DX: M20.12 Hallux valgus (acquired), left foot (principal); M21.612 Bunion of left foot; M20.42 Other hammer toe(s) (acquired), left foot; M62.462 Contracture of muscle, left lower leg; E03.9 Hypothyroidism, unspecified; G47.33 Obstructive sleep apnea (adult) (pediatric)
CPT/HCPCS: 27687; 28285; 28297; C1769; C1713; J1100; J2001; J2250; J2405; J2704; J2795; J3010